=== PATIENT | female | born 1985 | race Caucasian/White ===

== ENCOUNTER → 2018-11-21 | Outpatient (REF) | payer OTHER | LOC: M LAB LCGH 11:55 | PROVIDERS: ATTEND Physician Assistant | DX: L82.1 Other seborrheic keratosis (principal) ==

== ENCOUNTER → 2025-03-12 | Outpatient (REF) | payer OTHER | LOC: M SFHCDERM 17:38 | PROVIDERS: ATTEND Nurse Practitioner Family | DX: D18.01 Hemangioma of skin and subcutaneous tissue (principal) ==